=== PATIENT | female | born 1965 | race Caucasian/White ===

== ENCOUNTER → 2017-03-26 | Outpatient (CLI) | payer BC ==
[~2017-03-26] MED LIST: BCP PO; IMITREX PO
--- NOTE | ~2017-03-26 | MY29 ---
[facility] A Service of [facility] RADIOLOGY TEXT RESULTS PATIENT: KAYLEIGH ELIZABETH LOCATION: [facility] : 67 UNIT #: [id number] AGE: [address]: Hali Robertson MD SEX: F ORDER DR: [id number] [facility] [address] [place], [place] [address] [id number] O MR#: [id number] #: [id number] NAME: KAYLEIGH ELIZABETH : 1965 SEX: F STUDY DATE/TIME: 03/26/2017 14:21 UNIT: [facility] ROOM: STUDY DESCRIPTION: MY CHRIS SCREENING W/ CAD BILAT Attending Physician: Hali Robertson M.D. Referring Physician: Hali Robertson M.D. Ordering Physician: Hali Robertson M.D. Primary Care Physician: Zeynpe Browning M.D. MEDICAL IMAGING REPORT This report is preliminary unless electronic signature is present EXAM Digital screening mammogram, 03/26/2017, [facility]. HISTORY 51-year-old woman positive family history, sister age 45. Annual screen. COMPARISON Mammograms date to 09/27/2006 with most recent 03/15/2016. TECHNIQUE Digital imaging of each breast was completed utilizing screening protocol. Review includes FDA-approved CAD device. FINDINGS Breast parenchyma is extremely dense with a small nodular parenchymal pattern throughout both breasts. I see no suspicious mass characteristics. There are no interval occurring microcalcifications and no suspicious architectural deformity. IMPRESSION Negative mammogram. Stable dense breast parenchyma again noted. Consider adding breast tomosynthesis to this patient's annual screening protocol. This could be performed at [facility]. Annual screening is imperative. Patients over the age of 40 are entered into a reminder system with target due date for the next mammogram. A result letter will also be sent to the patient. BIRADS: 1 Negative [facility] A Service of [facility] & [facility] RADIOLOGY TEXT RESULTS PATIENT: KAYLEIGH ELIZABETH LOCATION: [facility] : 67 UNIT #: [id number] AGE: [address]: Hali Robertson MD SEX: F ORDER DR: Dictated by... Carlos Garvin M.D. THIS IS AN ELECTRONICALLY VERIFIED REPORT Carlos Garvin M.D. at 03/27/2017 8:13 AM MALINA/gisela TD: 03/26/2017 18:28 JOB #: [id number] MEDICAL IMAGING REPORT Page 1 of 1 COPY
== END | disposition home or self-care (01) ==
LOC: CWCC 13:54
DX: Z12.31 Encounter for screening mammogram for malignant neoplasm of breast (principal); Z80.3 Family history of malignant neoplasm of breast
CPT/HCPCS: G0202